=== PATIENT | male | born 1975 | race Caucasian/White ===

== ENCOUNTER → 2024-12-14 | Outpatient (CLI) | payer BC, SELFPAY ==
[2024-12-14 17:16] LABS: Prostate Specific Antigen 5.91 ng/mL (0-4.00)
== END | disposition home or self-care (01) ==
LOC: COPL 15:09
PROVIDERS: PCP Family Medicine; Referring Provider Family Medicine; Visit Provider Family Medicine
DX: R53.83 Other fatigue (principal)
CPT/HCPCS: 36415; 84153